=== PATIENT | male | born 1950 | race American Indian/Alaskan Native ===

== ENCOUNTER 2021-09-30 15:20 | Emergency (ER) | payer MEDICARE ==
[2021-09-30] MEDS ORDERED: ASPIRIN 325 MG TAB PO ONE (15:31)
--- NOTE | 2021-09-30 15:57 | XRay Report ---
CHEST PA AND LATERAL VIEWS INDICATION: SOB. COMPARISON: None. FINDINGS: Support devices: None. Heart: Within normal limits. Lungs/Pleura: There is diffuse peribronchial cuffing with diffuse increased reticular/interstitial ma rkings. No consolidation or effusion. IMPRESSION: 1. Diffuse peribronchial cuffing and prominent interstitial markings can be seen in the setting of lo wer airways disease. Signer Name: Femi Otero MD Signed: 09/30/2021 3:53 PM Workstation Name: [id number]
[2021-09-30 16:35] LABS: Hematocrit 36.9 % (35.5-45.6); Hemoglobin 12.3 gm/dl (11.8-15.2); Mean Corpuscular Volume 90 fl (84-94); Red Blood Count 4.11 M/mm3 (3.65-5.03)
[2021-09-30 16:36] LABS: Basophils # (Auto) 0.1 K/mm3 (0.0-0.1); Basophils % (Auto) 0.5 % (0.0-1.8); Eosinophils # (Auto) 0.2 K/mm3 (0.0-0.4); Eosinophils % (Auto) 1.4 % (0.0-4.3); Lymphocytes # (Auto) 1.1 K/mm3 (1.2-5.4); Lymphocytes % (Auto) 8.2 % (13.4-35.0); Mean Corpuscular HGB Conc 33 % (32-34); Mean Platelet Volume 7.5 fl (6-12); Monocytes # (Auto) 1.2 K/mm3 (0.0-0.8); Monocytes % (Auto) 9.4 % (0.0-7.3); Platelet Count 358 K/mm3 (140-440)
[2021-09-30 16:49] LABS: Alanine Aminotransferase 42 units/L (7-56); Albumin 3.9 g/dL (3.9-5); BUN/Creatinine Ratio 13; Blood Urea Nitrogen 13 mg/dL (9-20); Calcium 9.4 mg/dL (8.4-10.2); Hemolysis Index 1
[2021-09-30] MEDS ORDERED: methylPREDNISolone Sod Succinate 125 MG/2 ML INJ IV ONE (23:04)
[2021-09-30] MEDS ORDERED: ALBUTEROL 2.5 MG/3 ML NEBU IH ONE (23:04)
[2021-09-30] MEDS ORDERED: IPRATROPIUM 0.02% NEBU 2.5 ML IH ONE (23:04)
[2021-09-30 23:51] LABS: Basophils # (Auto) 0.1 K/mm3 (0.0-0.1); Basophils % (Auto) 0.9 % (0.0-1.8); Eosinophils # (Auto) 0.3 K/mm3 (0.0-0.4); Eosinophils % (Auto) 2.1 % (0.0-4.3); Hematocrit 35.6 % (35.5-45.6); Hemoglobin 11.8 gm/dl (11.8-15.2); Mean Corpuscular HGB Conc 33 % (32-34); Mean Corpuscular Volume 90 fl (84-94); Monocytes # (Auto) 1.5 K/mm3 (0.0-0.8); Monocytes % (Auto) 12.3 % (0.0-7.3); Platelet Count 351 K/mm3 (140-440); Red Blood Count 3.94 M/mm3 (3.65-5.03); Red Cell Distribution Width 12.9 % (13.2-15.2)
[2021-10-01 00:10] LABS: Creatine Kinase MB 2.8 ng/mL (0.0-4.0)
--- NOTE | 2021-10-01 01:18 | Emergency Department Report ---
ED Shortness of Breath HPI - General Chief Complaint: Dyspnea/Respdistress Stated Complaint: ABNORMAL EKG/REF BY DOCTOR Time Seen by Provider: 09/30/21 23:00 Source: patient Mode of arrival: Ambulatory Limitations: No Limitations - History of Present Illness Complaint: shortness of breath -: Gradual, days(s) Severity: mild Improves With: oxygen Worsens With: exertion Context: recent URI Associated Symptoms: denies other symptoms, cough - Related Data Home Oxygen Therapy: No Allergies Allergy/AdvReac Type Severity Reaction Status Date / Time No Known Allergies Allergy Verified 09/30/21 15:31 ED Review of Systems ROS: Stated complaint: ABNORMAL EKG/REF BY DOCTOR Other details as noted in HPI Constitutional: denies: chills, fever Eyes: denies: eye pain, eye discharge, vision change ENT: denies: ear pain, throat pain Respiratory: denies: cough, shortness of breath, wheezing Cardiovascular: denies: chest pain, palpitations Endocrine: no symptoms reported Gastrointestinal: denies: abdominal pain, nausea, diarrhea Genitourinary: denies: urgency, dysuria Musculoskeletal: denies: back pain, joint swelling, arthralgia Skin: denies: rash, lesions Neurological: denies: headache, weakness, paresthesias Psychiatric: denies: anxiety, depression Hematological/Lymphatic: denies: easy bleeding, easy bruising ED Past Medical Hx - Past Medical History Previous Medical History?: Yes Hx Hypertension: Yes - Surgical History Past Surgical History?: No ED Physical Exam - General Limitations: No Limitations General appearance: alert, in no apparent distress - Head Head exam: Present: atraumatic, normocephalic - Eye Eye exam: Present: normal appearance - ENT ENT exam: Present: mucous membranes moist - Neck Neck exam: Present: normal inspection - Respiratory Respiratory exam: Present: normal lung sounds bilaterally. Absent: respiratory distress - Cardiovascular Cardiovascular Exam: Present: regular rate, normal rhythm. Absent: systolic murmur, diastolic murmur, rubs, gallop - GI/Abdominal GI/Abdominal exam: Present: soft, normal bowel sounds - Rectal Rectal exam: Present: deferred - Extremities Exam Extremities exam: Present: normal inspection - Back Exam Back exam: Present: normal inspection - Neurological Exam Neurological exam: Present: alert, oriented X3 - Psychiatric Psychiatric exam: Present: normal affect, normal mood - Skin Skin exam: Present: warm, dry, intact, normal color. Absent: rash ED Course Vital Signs 09/30/21 09/30/21 15:35 23:47 Temperature 98.2 F Pulse Rate 103 H Pulse Rate [ 99 H Bilateral Throughout] Respiratory 16 Rate Respiratory 21 Rate [Bilateral Throughout] Blood Pressure 124/76 [Left] O2 Sat by Pulse 95 Oximetry ED Medical Decision Making - Lab Data Result diagrams: 09/30/21 23:16 09/30/21 15:55 - EKG Data -: EKG Interpreted by Mo Rate: normal - EKG Data Interpretation: other (pvc) - Radiology Data Radiology results: report reviewed, image reviewed - Medical Decision Making work up showed negative trop, bnp os less than 500 x ray showed lower airway disease Critical care attestation.: If time is entered above; I have spent that time in minutes in the direct care of this critically ill patient, excluding procedure time. ED Disposition Clinical Impression: SOB (shortness of breath) Disposition: 01 HOME / SELF CARE / HOMELESS Is pt being admited?: No Does the pt Need Aspirin: No Condition: Stable Referrals: TAI MIRANDA [Other] - 3-5 Days
[2021-10-01 01:55] VITALS: BP 114/68
--- NOTE | 2021-10-03 10:31 | Electrocardiograph Report ---
[facility] Test Date: 2021-09-30 Test Time: 15:31:02 Pat Name: JONELLE ROSENBAUM Department: Room: Gender: M Clinical Supervisor: CYNTHIA : 1950 Requested By: VENANCIO ALBARRAN Order Number: [id number] Reading MD: Maria A Wick Measurements Intervals Guin Rate: 99 P: 51 [place]: 177 QRS: 3 QRSD: 97 T: 55 QT: 356 QTc: 458 Interpretive Statements Sinus rhythm Ventricular premature complex No previous ECG available for comparison Electronically Signed On 10-03-2021 10:31:09 EDT by Maria A Wick
== END 2021-10-01 01:41 | disposition home or self-care (01) ==
LOC: ED 15:20
DX: R06.02 Shortness of breath (principal)
CPT/HCPCS: 36415; 71046; 80053; 82140; 82550; 82553; 83880; 84484; 85025; 85610; 93005; 94640; 96374; 99284; J2930; 94644